=== PATIENT | female | born 1945 | race Caucasian/White ===

== ENCOUNTER 2021-10-12 14:59 | Inpatient (IN) ==
[2021-10-12] MEDS ORDERED: SALINE 0.9% 3 ML NEB TX ONE (18:08)
[2021-10-12] MEDS ORDERED: SALINE 3% 15 ML NEB TX NEB ONE (18:19)
[2021-10-12 18:45] VITALS: BMI 25.6
[2021-10-12] MEDS ORDERED: XOPENEX 1.25 MG/3 ML NEBULE NEB ONE (20:00)
[2021-10-12] MEDS: PULMICORT NEB TX 0.5 MG NEB SCH (20:59)
[2021-10-12] MEDS ORDERED: APRESOLINE INJ 20 MG VIAL IVP ONE (22:08)
[2021-10-12] MEDS ORDERED: NORMODYNE INJ 20 MG VIAL IV PRN (22:08)
[2021-10-12] MEDS ORDERED: CATAPRES TAB 0.1 MG PO ONE (22:08)
[2021-10-13] MEDS: XOPENEX 1.25 MG/3 ML NEBULE NEB SCH ×4 (00:42→17:00)
[2021-10-13 06:00] LABS: BASOPHILS % (AUTO) 0.6 % (0.2-1.0); EOSINOPHILS % (AUTO) 0.9 % (0.9-2.9); HEMATOCRIT 24.8 % (36.0-47.0); HEMOGLOBIN 8.5 g/dL (12.0-16.0); LYMPHOCYTES # (AUTO) 0.9 X10^3/uL (1.3-2.9); LYMPHOCYTES % (AUTO) 28.7 % (21.0-51.0); MEAN CORPUSCULAR HEMOGLOBIN 32.4 pg (27.0-34.0); MEAN CORPUSCULAR HGB CONC 34.4 g/dL (33.0-35.0); MEAN CORPUSCULAR VOLUME 94.1 fL (80.0-100.0); MEAN PLATELET VOLUME 8.9 fL (7.4-11.0); MONOCYTES # (AUTO) 0.3 x10^3/uL (0.3-0.8); MONOCYTES % (AUTO) 8.9 % (0.0-13.0); NEUTROPHILS % (AUTO) 60.9 % (42.0-75.0); RED BLOOD COUNT 2.63 X10^6/uL (3.5-5.4); RED CELL DISTRIBUTION WIDTH 15.3 % (11.6-16.5); WHITE BLOOD COUNT 3.3 X10^3/uL (3.6-10.0)
--- NOTE | 2021-10-13 06:08 | RAD ---
HISTORYCOVID, SOB Relevant Clinical InformationSTUDYCHEST, 1 VIEWCOMPARISONNoneFINDINGSThe trachea is midline. The cardiac silhouette is unremarkable. The lungs are clear without focal infiltrate or effusion. The bony thorax is unremarkable.IMPRESSIONNo acute cardiopulmonary findings .Electronically signed by: Mckay Meyer (Oct 13, 2021 06:07:36)
[2021-10-13 06:09] LABS: ALANINE AMINOTRANSFERASE 22 Units/L (12-78); ALBUMIN 2.9 g/dL (3.4-5.0); ALKALINE PHOSPHATASE 62 Units/L (46-116); ASPARTATE AMINO TRANSFERASE 19 Units/L (15-37); BLOOD UREA NITROGEN 24 mg/dL (7-18); CALCIUM 7.8 mg/dL (8.5-10.1); CARBON DIOXIDE 32.3 mmol/L (21-32); CHLORIDE 106 mmol/L (98-107); COR CA(FOR HYPOALB) 8.7 mg/dL (8.5-10.1); SODIUM 144 mmol/L (136-145); TOTAL PROTEIN 5.8 g/dL (6.4-8.2); eGFR NON BLACK RACES 42 (>60)
[2021-10-13] MEDS ORDERED: POTASSIUM CHL 60 MEQ/NS 0.45% 500 ML IV PRN (07:47)
[2021-10-13] MEDS ORDERED: POTASSIUM CHL 40 MEQ/NS 0.45% 500 ML IV PRN (07:47)
[2021-10-13] MEDS ORDERED: MICRO K EXTEN CAP 10 MEQ PO PRN (07:47)
[2021-10-13] MEDS ORDERED: KLOR-CON PO PRN (07:47)
[2021-10-13] MEDS ORDERED: POTASSIUM CHLORIDE LIQ 20 MEQ UDC PO PRN (07:47)
[2021-10-13] MEDS ORDERED: K-RIDER 10 MEQ/NS 100 ML 10 MEQ/100 ML BAG IV PRN (07:47)
[2021-10-13] MEDS ORDERED: NS 100 ML IV 100 ML IV PRN (08:22)
[2021-10-13] MEDS: K-DUR TAB 20 MEQ PO PRN (08:24)
[2021-10-13] MEDS: MAGNESIUM SULFATE 1 GRAM/100 mL PREMIX 1 G/100 ML BAG IV PRN ×4 (08:27→12:47)
[2021-10-13] MEDS: PULMICORT NEB TX 0.5 MG NEB SCH ×2 (08:37→20:50)
[2021-10-13] MEDS: LEVAQUIN PREMIX IV 500 MG 500 MG/100 ML BAG IV SCH (09:36)
[2021-10-14] MEDS: XOPENEX 1.25 MG/3 ML NEBULE NEB SCH ×4 (00:30→18:11)
--- NOTE | 2021-10-14 06:10 | RAD ---
HISTORYPNEUMONIA; SOB Relevant Clinical InformationSTUDYCHEST, 1 [id number]/2022FINDINGSThe trachea is midline. The cardiac silhouette is unremarkable. The lungs are clear without focal infiltrate or effusion. The bony thorax is unremarkable.IMPRESSIONNo acute cardiopulmonary findings .Electronically signed by: Mckay Meyer (Oct 14, 2021 06:09:26)
[2021-10-14 06:33] LABS: BASOPHILS % (AUTO) 0.6 % (0.2-1.0); EOSINOPHILS % (AUTO) 0.5 % (0.9-2.9); HEMATOCRIT 25.6 % (36.0-47.0); HEMOGLOBIN 8.8 g/dL (12.0-16.0); LYMPHOCYTES # (AUTO) 0.7 X10^3/uL (1.3-2.9); LYMPHOCYTES % (AUTO) 14.8 % (21.0-51.0); MEAN CORPUSCULAR HEMOGLOBIN 32.7 pg (27.0-34.0); MEAN CORPUSCULAR HGB CONC 34.2 g/dL (33.0-35.0); MEAN CORPUSCULAR VOLUME 95.5 fL (80.0-100.0); MONOCYTES # (AUTO) 0.4 x10^3/uL (0.3-0.8); MONOCYTES % (AUTO) 7.6 % (0.0-13.0); NEUTROPHILS # (AUTO) 3.7 x10^3/uL (2.2-4.8); NEUTROPHILS % (AUTO) 76.5 % (42.0-75.0); RED BLOOD COUNT 2.68 X10^6/uL (3.5-5.4); RED CELL DISTRIBUTION WIDTH 15.7 % (11.6-16.5); WHITE BLOOD COUNT 4.9 X10^3/uL (3.6-10.0)
[2021-10-14 06:36] LABS: ALANINE AMINOTRANSFERASE 22 Units/L (12-78); ALKALINE PHOSPHATASE 73 Units/L (46-116); ASPARTATE AMINO TRANSFERASE 21 Units/L (15-37); BLOOD UREA NITROGEN 27 mg/dL (7-18); CARBON DIOXIDE 30.4 mmol/L (21-32); CHLORIDE 104 mmol/L (98-107); COR CA(FOR HYPOALB) 8.8 mg/dL (8.5-10.1); CREATININE 1.45 mg/dL (0.55-1.02); MAGNESIUM 2.4 mg/dL (1.7-2.9); SODIUM 142 mmol/L (136-145); TOTAL PROTEIN 6.1 g/dL (6.4-8.2); eGFR NON BLACK RACES 37 (>60)
[2021-10-14] MEDS: PULMICORT NEB TX 0.5 MG NEB SCH ×2 (08:35→21:01)
[2021-10-14] MEDS ORDERED: ZOLOFT ONE (09:44)
[2021-10-14] MEDS: LOPRESSOR TAB 50 MG PO SCH (09:47)
[2021-10-14] MEDS: K-DUR TAB 20 MEQ PO PRN (09:47)
[2021-10-14] MEDS: LEVAQUIN PREMIX IV 500 MG 500 MG/100 ML BAG IV SCH (09:47)
[2021-10-14] MEDS: ZOLOFT PO SCH (09:48)
[2021-10-14] MEDS: MICRO K EXTEN CAP 10 MEQ PO SCH (09:48)
[2021-10-14] MEDS: TRICOR TAB 160 MG PO SCH (09:48)
[2021-10-14] MEDS: NORVASC TAB 5 MG PO SCH (09:48)
[2021-10-14] MEDS: DIOVAN TAB 160 MG PO SCH (09:49)
[2021-10-14] MEDS: HYDROCHLOROTHIAZIDE 12.5 MG CAP PO SCH (09:49)
[2021-10-14] MEDS ORDERED: LEVAQUIN PREMIX IV 250 MG 250 MG/50 ML BAG IV SCH (10:00)
--- NOTE | 2021-10-14 10:24 | DR.UPDATE ---
H&P Update History and Physical Update: History and Physical reviewed and patient examined. Changes noted: Yes with the following: PATIENT PRESENTED TO THE OFFICE WITH COMPLAINTS OF PERSISTENT, NON-PRODUCTIVE COUGH AND SHORTNESS OF BREATH. SYMPTOMS HAVE BEEN PRESENT FOR THE PAST TWO AND A HALF WEEKS. SHE INITIALLY TESTED POSITIVE FOR COVID-19 ON 09/28/21. SHE WAS TREATED WITH A Z-PACK AND A MEDROL DOSE PACK. COUGH AND SHORTNESS OF BREATH HAVE PERSISTED DESPITE COMPLETING MEDICATIONS. DECISION WAS MADE TO ADMIT PATIENT TO THE HOSPTIAL FOR FURTHER EVALUATION AND TREATMENT OF BRONCHOPNEUMONIA. ON ARRIVAL TO THE HOSPITAL, VITALS WERE: 99.3-74-20-100%-183/78. LABS WERE OBTAINED. WBC 3.3, RBC 2.63, HGB 8.5, HCT 24.8, D-DIMER 0.66, SODIUM 144, POTASSIUM 3.6, CARBON DIOXIDE 32.3, BUN 24, CREATININE 1.30, GLUCOSE 96, CALCIUM 7.8, MAGNESIUM 1.4, AST 19, ALT 22, ALK PHOS 62, BNP 186, ALBUMIN 2.9. COVID-19 POSITIVE. EKG REVEALED: NSR WITH HR 68. CHEST XRAY REVEALED: The trachea is midline. The cardiac silhouette is unremarkable. The lungs are clear without focal infiltrate or effusion. The bony thorax is unremarkable. SHE WAS STARTED ON NORMAL SALINE AT KVO, LEVAQUIN 250MG IV DAILY, XOPENEX NEBS Q6H, PULMICORT NEBS BID, ROBITUSSIN DM 10ML QID, AND THE POTASSIUM AND MAGNESIUM PROTOCOLS. WE WILL REFIEW HER HOME MEDICATIONS TODAY AND RESUME APPROPRIATE. OTHERWISE, WE PLAN TO FOLLOW-UP WITH AM LABS AND CHEST XRAY AND CONTINUE TO MONITOR. TIME SPENT ON CLINICAL ASSESSMENT, REVIWING LABS AND IMAGING, DECISION MAKING, AND DOCUMENTATION GREATER THAN 75 MINUTES. H&P Reviewed: Yes Patient was examined?: Yes
[2021-10-14] MEDS: ROBITUSSIN DM PO SCH ×4 (11:07→20:06)
--- NOTE | 2021-10-14 11:49 | PCM.PROG ---
Progress Note - Progress Note for Day of Date of Exam: 10/14/21 - Subjective Subjective: IS CURRENTLY OBSERVATION STATUS FOR TREATMENT OF BRONCHOPNEUMONIA, COVID-19. SHE INITIALLY TESTED POSITIVE FOR COVID-19 APPROXIMATELY TWO WEEKS AGO. TODAY, SHE IS ALERT AND ORIENTED, SITTING UP IN BED ON MORNING ROUNDS. SHE COMPLAINS OF A PERSISTENT, NON-PRODUCTIVE COUGH AND SHORTNESS OF BREATH AT TIMES. ON EXAMINATION, HEART IS REGULAR IN RATE AND RHYTHM. BILATERAL LUNGS NOTED WITH RHONCHI THROUGHOUT. ABDOMEN IS ROUND, SOFT, AND NON-TENDER WITH NORMAL BOWEL SOUNDS NOTED IN ALL QUADRANTS. NO UPPER OR LOWER EXTREMITY EDEMA NOTED. HER VITALS THIS MORNING ARE: 98.2-93-20-100%-149/6 8. LABS WERE OBTAINED. WBC 4.9, RBC 2.68, HGB 8.8, HCT 25.6, PLT COUNT 167, D- DIMER 0.64, SODIUM 142, POTASSIUM 3.4, BUN 27, CREATININE 1.45, GLUCOSE 107, CALCIUM 8.0, MAGNESIUM 2.4, TOTAL PROTIEN 6.1, ALBUMIN 3.0. A CHEST XRAY WAS REPEATED. IT REVEALED: The trachea is midline. The cardiac silhouette is unremarkable. The lungs are clear without focal infiltrate or effusion. The bony thorax is unremarkable. SHE IS CURRENTLY RECEIVING NORMAL SALINE AT KVO, LEVAQUIN 250MG IV DAILY, XOPENEX NEBS Q6H, PULMICORT NEBS BID, ROBITUSSIN DM 10ML QID, AND THE POTASSIUM AND MAGNESIUM PROTOCOLS. HER HOME MEDICATIONS OF NORVASC, ZYRTEC, TRICOR, NEURONTIN, HCTZ, LOPRESSOR, ZOLOFT, AND DIOVAN WERE RESUMED. WE WILL CONTINUE WITH CURRENT PLAN OF CARE TODAY. OTHERWISE, WE PLAN TO FOLLOW-UP WITH AM LABS AND CONTINUE TO MONITOR. TIME SPENT ON CLINICAL ASSESSMENT, REVIWING LABS AND IMAGING, DECISION MAKING, AND DOCUMENTATION GREATER THAN 45 MINUTES. - Past Medical Family Social History Past Med/Fam/Surg Hx: No changes since H&P Allergies: Allergies Penicillins Allergy (Verified 05/28/20 12:08) - Review of Systems ROS: No change since H&P - Vital Signs and I&O's Vital Signs: Temperature 98.2 F Pulse Rate [Apical] 93 Pulse Rate 85 Respiratory Rate 20 Blood Pressure [Left Arm] 149/68 Blood Pressure 188/77 O2 Sat by Pulse Oximetry 98 Intake and Output: Intake & Output 10/11/21 10/12/21 10/13/21 10/14/21 11:59 11:59 11:59 11:59 Intake Total 1170 / 1170 Balance 1170 / 1170 - Physical Exam Oriented: Normal Eyes: Normal Ear: Normal Nose: Normal Throat: Normal Respiratory: Generalized, Diminished, Rhonchi Cardiovascular: Normal : Normal Auscultation: Bowel Sounds: Normal Palpation: Normal Tenderness: Normal Skin: Normal Musculoskeletal: Normal Psychiatric: Normal Mood Description: Calm Affect: Normal Speech Pattern: Clear, Appropriate - Laboratory and Diagnostics Result Diagrams: 10/14/21 05:34 10/14/21 05:34 Labs: Laboratory WBC 4.9 X10^3/uL (3.6-10.0) 10/14/21 05:34 RBC 2.68 X10^6/uL (3.5-5.4) L 10/14/21 05:34 Hgb 8.8 g/dL (12.0-16.0) L 10/14/21 05:34 Hct 25.6 % (36.0-47.0) L 10/14/21 05:34 MCV 95.5 fL (80.0-100.0) 10/14/21 05:34 MCH 32.7 pg (27.0-34.0) 10/14/21 05:34 MCHC 34.2 g/dL (33.0-35.0) 10/14/21 05:34 RDW 15.7 % (11.6-16.5) 10/14/21 05:34 Plt Count 167 X10^3/uL (150.0-450.0) 10/14/21 05:34 MPV 9.0 fL (7.4-11.0) 10/14/21 05:34 Neut % (Auto) 76.5 % (42.0-75.0) H 10/14/21 05:34 Lymph % (Auto) 14.8 % (21.0-51.0) L 10/14/21 05:34 [place] % (Auto) 7.6 % (0.0-13.0) 10/14/21 05:34 Eos % (Auto) 0.5 % (0.9-2.9) L 10/14/21 05:34 Baso % (Auto) 0.6 % (0.2-1.0) 10/14/21 05:34 Neut # (Auto) 3.7 x10^3/uL (2.2-4.8) 10/14/21 05:34 Lymph # (Auto) 0.7 X10^3/uL (1.3-2.9) L 10/14/21 05:34 [place] # (Auto) 0.4 x10^3/uL (0.3-0.8) 10/14/21 05:34 Eos # (Auto) 0.0 x10^3/uL (0.0-0.2) 10/14/21 05:34 Baso # (Auto) 0.0 X10^3/uL (0.0-0.1) 10/14/21 05:34 Absolute Nucleated RBC 0.0 /100WBC 10/14/21 05:34 D-Dimer 0.64 ug/ml (0.0-0.57) H 10/14/21 05:34 Sodium 142 mmol/L (136-145) 10/14/21 05:34 Corrected Sodium TNP 10/14/21 05:34 Potassium 3.4 mmol/L (3.5-5.1) L 10/14/21 05:34 Chloride 104 mmol/L (98-107) 10/14/21 05:34 Carbon Dioxide 30.4 mmol/L (21-32) 10/14/21 05:34 BUN 27 mg/dL (7-18) H 10/14/21 05:34 Creatinine 1.45 mg/dL (0.55-1.02) H 10/14/21 05:34 Est GFR (MDRD) Af Amer 45 (>60) L 10/14/21 05:34 Est GFR (MDRD) Non-Af 37 (>60) L 10/14/21 05:34 Glucose 107 mg/dL (65-99) H 10/14/21 05:34 Calcium 8.0 mg/dL (8.5-10.1) L 10/14/21 05:34 Corrected Calcium 8.8 mg/dL (8.5-10.1) 10/14/21 05:34 Magnesium 2.4 mg/dL (1.7-2.9) 10/14/21 05:34 Total Bilirubin 0.70 mg/dL (0.2-1.0) 10/14/21 05:34 AST 21 Units/L (15-37) 10/14/21 05:34 ALT 22 Units/L (12-78) 10/14/21 05:34 Alkaline Phosphatase 73 Units/L (46-116) 10/14/21 05:34 C-Reactive Protein 1.90 mg/L (0-3.0) 10/14/21 05:34 B-Natriuretic Peptide 186 pg/mL (0-79) H 10/13/21 05:18 Total Protein 6.1 g/dL (6.4-8.2) L 10/14/21 05:34 Albumin 3.0 g/dL (3.4-5.0) L 10/14/21 05:34 Globulin 3.1 g/dL (2.5-4.5) 10/14/21 05:34 Albumin/Globulin Ratio 1.0 Ratio (1.1-2.1) L 10/14/21 05:34 SARS-CoV-2 (PCR) Positive (NEGATIVE) A 10/12/21 18:15 - Plan (1) Bronchopneumonia Status: Acute Plan: NORMAL SALINE AT KVO, LEVAQUIN 250MG IV DAILY, XOPENEX NEBS Q6H, PULMICORT NEBS BID, ROBITUSSIN DM 10ML QID, AND THE POTASSIUM AND MAGNESIUM PROTOCOLS. RESUME HOME MEDS (2) COVID-19 Status: Acute (3) HTN (hypertension) Status: Chronic Qualifiers: Hypertension type: primary hypertension Qualified Code(s): I10 - Essential (primary) hypertension
[2021-10-14] MEDS: LEVAQUIN TAB 250 MG PO SCH (16:04)
[2021-10-14] MEDS: NEURONTIN CAP 100 MG PO SCH (20:07)
[2021-10-14] MEDS: ZyrTEC TAB 10 MG PO SCH (20:07)
[2021-10-15] MEDS: XOPENEX 1.25 MG/3 ML NEBULE NEB SCH ×5 (00:54→18:52)
--- NOTE | 2021-10-15 06:17 | RAD ---
HISTORYF/U PNEUMONIA Relevant Clinical InformationSTUDYCHEST, 1 [id number]/31/2022FINDINGSThe trachea is midline. The cardiac silhouette is unremarkable. The lungs are clear without focal infiltrate or effusion. The bony thorax is unremarkable.IMPRESSIONNo acute cardiopulmonary findings .Electronically signed by: Mckay Meyer (Oct 15, 2021 06:15:31)
[2021-10-15 06:29] LABS: ALANINE AMINOTRANSFERASE 23 Units/L (12-78); ALBUMIN 2.7 g/dL (3.4-5.0); ALKALINE PHOSPHATASE 58 Units/L (46-116); ASPARTATE AMINO TRANSFERASE 26 Units/L (15-37); BLOOD UREA NITROGEN 20 mg/dL (7-18); CALCIUM 7.8 mg/dL (8.5-10.1); CHLORIDE 109 mmol/L (98-107); COR CA(FOR HYPOALB) 8.8 mg/dL (8.5-10.1); CREATININE 1.14 mg/dL (0.55-1.02); SODIUM 144 mmol/L (136-145); TOTAL PROTEIN 5.5 g/dL (6.4-8.2); eGFR NON BLACK RACES 49 (>60)
[2021-10-15 06:32] LABS: BASOPHILS % (AUTO) 0.7 % (0.2-1.0); HEMATOCRIT 23.8 % (36.0-47.0); LYMPHOCYTES # (AUTO) 0.8 X10^3/uL (1.3-2.9); LYMPHOCYTES % (AUTO) 21.6 % (21.0-51.0); MEAN CORPUSCULAR HGB CONC 33.7 g/dL (33.0-35.0); MEAN CORPUSCULAR VOLUME 95.1 fL (80.0-100.0); MONOCYTES # (AUTO) 0.3 x10^3/uL (0.3-0.8); MONOCYTES % (AUTO) 8.3 % (0.0-13.0); NEUTROPHILS # (AUTO) 2.4 x10^3/uL (2.2-4.8); NEUTROPHILS % (AUTO) 68.4 % (42.0-75.0); RED BLOOD COUNT 2.51 X10^6/uL (3.5-5.4); RED CELL DISTRIBUTION WIDTH 15.5 % (11.6-16.5); WHITE BLOOD COUNT 3.6 X10^3/uL (3.6-10.0)
[2021-10-15] MEDS ORDERED: ZOLOFT ONE (06:57)
[2021-10-15] MEDS: LOPRESSOR TAB 50 MG PO SCH (08:33)
[2021-10-15] MEDS: HYDROCHLOROTHIAZIDE 12.5 MG CAP PO SCH (08:33)
[2021-10-15] MEDS: ROBITUSSIN DM PO SCH (08:33)
[2021-10-15] MEDS: MICRO K EXTEN CAP 10 MEQ PO SCH (08:33)
[2021-10-15] MEDS: ZOLOFT PO SCH (08:33)
[2021-10-15] MEDS: LEVAQUIN TAB 250 MG PO SCH (08:33)
[2021-10-15] MEDS: NORVASC TAB 5 MG PO SCH (08:34)
[2021-10-15] MEDS: TRICOR TAB 160 MG PO SCH (08:34)
[2021-10-15] MEDS: DIOVAN TAB 160 MG PO SCH (08:34)
[2021-10-15] MEDS: PULMICORT NEB TX 0.5 MG NEB SCH ×2 (08:41→20:10)
[2021-10-15] MEDS ORDERED: LEVAQUIN TAB 250 MG PO SCH (09:00)
--- NOTE | 2021-10-15 11:23 | PCM.PROG ---
Progress Note - Progress Note for Day of Date of Exam: 10/15/21 - Subjective Subjective: IS CURRENTLY OBSERVATION STATUS FOR TREATMENT OF BRONCHOPNEUMONIA, COVID-19. SHE INITIALLY TESTED POSITIVE FOR COVID-19 APPROXIMATELY TWO WEEKS AGO. TODAY, SHE IS ALERT AND ORIENTED, SITTING UP IN BED ON MORNING ROUNDS. SHE COMPLAINS OF A PERSISTENT, NON-PRODUCTIVE COUGH AND SHORTNESS OF BREATH AT TIMES. ON EXAMINATION, HEART IS REGULAR IN RATE AND RHYTHM. BILATERAL LUNGS NOTED WITH RHONCHI THROUGHOUT. ABDOMEN IS ROUND, SOFT, AND NON-TENDER WITH NORMAL BOWEL SOUNDS NOTED IN ALL QUADRANTS. NO UPPER OR LOWER EXTREMITY EDEMA NOTED. HER VITALS THIS MORNING ARE: 98.2-82-20-96%-152/67. LABS WERE OBTAINED. WBC 3.6, RBC 2.51, HGB 8.0, HCT 23.8, PLT COUNT 144, SODIUM 144, POTASSIUM 4.1, CHLORIDE 109, BUN 20, CREATININE 1.14, GLUCOSE 92, CALCIUM 7.8, AST 26, ALT 23, ALK PHOS 58, CRP 2.80, TOTAL PROTEIN 5.5, ALBUMIN 2.7. A CHEST XRAY WAS REPEATED AND IS UNREMARGKABLE. HER RESPIRATORY PANEL WAS POSITIVE FOR PSEUDOMONAS AERUGINOSA. SHE IS CURRENTLY RECEIVING NORMAL SALINE AT KVO, LEV AQUIN 250MG PO DAILY, XOPENEX NEBS Q6H, PULMICORT NEBS BID, ROBITUSSIN DM 10ML QID, AND THE POTASSIUM AND MAGNESIUM PROTOCOLS. HER HOME MEDICATIONS OF NORVASC, ZYRTEC, TRICOR, NEURONTIN, HCTZ, LOPRESSOR, ZOLOFT, AND DIOVAN WERE RESUMED. WE WILL CHANGE THE ROBITUSSIN TO ROBITUSSIN CF 10ML QID. OTHERWISE, WE PLAN TO FOLLOW-UP WITH AM LABS AND CONTINUE TO MONITOR. TIME SPENT ON CLINICAL ASSESSMENT, REVIWING LABS AND IMAGING, DECISION MAKING, AND DOCUMENTATION GREATER THAN 45 MINUTES. - Past Medical Family Social History Past Med/Fam/Surg Hx: No changes since H&P Allergies: Allergies Penicillins Allergy (Verified 05/28/20 12:08) - Review of Systems ROS: No change since H&P - Vital Signs and I&O's Vital Signs: Temperature 98.2 F Pulse Rate [Apical] 82 Pulse Rate 88 Respiratory Rate 20 Blood Pressure [Left Arm] 152/67 Blood Pressure 188/77 O2 Sat by Pulse Oximetry 99 Intake and Output: Intake & Output 10/12/21 10/13/21 10/14/21 10/15/21 11:59 11:59 11:59 11:59 Intake Total 1170 / 1170 950 / 950 Balance 1170 / 1170 950 / 950 - Physical Exam Oriented: Normal Eyes: Normal Ear: Normal Nose: Normal Throat: Normal Respiratory: Generalized, Diminished, Rhonchi Cardiovascular: Normal : Normal Auscultation: Bowel Sounds: Normal Palpation: Normal Tenderness: Normal Skin: Normal Musculoskeletal: Normal Psychiatric: Normal Mood Description: Calm Affect: Normal Speech Pattern: Clear, Appropriate - Laboratory and Diagnostics Result Diagrams: 10/15/21 05:11 10/15/21 05:11 Labs: Laboratory WBC 3.6 X10^3/uL (3.6-10.0) 10/15/21 05:11 RBC 2.51 X10^6/uL (3.5-5.4) L 10/15/21 05:11 Hgb 8.0 g/dL (12.0-16.0) L 10/15/21 05:11 Hct 23.8 % (36.0-47.0) L 10/15/21 05:11 MCV 95.1 fL (80.0-100.0) 10/15/21 05:11 MCH 32.0 pg (27.0-34.0) 10/15/21 05:11 MCHC 33.7 g/dL (33.0-35.0) 10/15/21 05:11 RDW 15.5 % (11.6-16.5) 10/15/21 05:11 Plt Count 144 X10^3/uL (150.0-450.0) L 10/15/21 05:11 MPV 9.0 fL (7.4-11.0) 10/15/21 05:11 Neut % (Auto) 68.4 % (42.0-75.0) 10/15/21 05:11 Lymph % (Auto) 21.6 % (21.0-51.0) 10/15/21 05:11 [place] % (Auto) 8.3 % (0.0-13.0) 10/15/21 05:11 Eos % (Auto) 1.0 % (0.9-2.9) 10/15/21 05:11 Baso % (Auto) 0.7 % (0.2-1.0) 10/15/21 05:11 Neut # (Auto) 2.4 x10^3/uL (2.2-4.8) 10/15/21 05:11 Lymph # (Auto) 0.8 X10^3/uL (1.3-2.9) L 10/15/21 05:11 [place] # (Auto) 0.3 x10^3/uL (0.3-0.8) 10/15/21 05:11 Eos # (Auto) 0.0 x10^3/uL (0.0-0.2) 10/15/21 05:11 Baso # (Auto) 0.0 X10^3/uL (0.0-0.1) 10/15/21 05:11 Absolute Nucleated RBC 0.1 /100WBC 10/15/21 05:11 D-Dimer 0.64 ug/ml (0.0-0.57) H 10/14/21 05:34 Sodium 144 mmol/L (136-145) 10/15/21 05:11 Corrected Sodium TNP 10/15/21 05:11 Potassium 4.1 mmol/L (3.5-5.1) 10/15/21 05:11 Chloride 109 mmol/L (98-107) H 10/15/21 05:11 Carbon Dioxide 29.0 mmol/L (21-32) 10/15/21 05:11 BUN 20 mg/dL (7-18) H 10/15/21 05:11 Creatinine 1.14 mg/dL (0.55-1.02) H 10/15/21 05:11 Est GFR (MDRD) Af Amer 60 (>60) 10/15/21 05:11 Est GFR (MDRD) Non-Af 49 (>60) L 10/15/21 05:11 Glucose 92 mg/dL (65-99) 10/15/21 05:11 Calcium 7.8 mg/dL (8.5-10.1) L 10/15/21 05:11 Corrected Calcium 8.8 mg/dL (8.5-10.1) 10/15/21 05:11 Magnesium 2.4 mg/dL (1.7-2.9) 10/14/21 05:34 Total Bilirubin 0.70 mg/dL (0.2-1.0) 10/15/21 05:11 AST 26 Units/L (15-37) 10/15/21 05:11 ALT 23 Units/L (12-78) 10/15/21 05:11 Alkaline Phosphatase 58 Units/L (46-116) 10/15/21 05:11 C-Reactive Protein 2.80 mg/L (0-3.0) 10/15/21 05:11 B-Natriuretic Peptide 186 pg/mL (0-79) H 10/13/21 05:18 Total Protein 5.5 g/dL (6.4-8.2) L 10/15/21 05:11 Albumin 2.7 g/dL (3.4-5.0) L 10/15/21 05:11 Globulin 2.8 g/dL (2.5-4.5) 10/15/21 05:11 Albumin/Globulin Ratio 1.0 Ratio (1.1-2.1) L 10/15/21 05:11 SARS-CoV-2 (PCR) Positive (NEGATIVE) A 10/12/21 18:15 Resp Viral Panel (PCR) See scanned report 10/12/21 18:38 - Plan (1) Bronchopneumonia Status: Acute Plan: NORMAL SALINE AT KVO, LEVAQUIN 250MG IV DAILY, XOPENEX NEBS Q6H, PULMICORT NEBS BID, ROBITUSSIN CF 10ML QID, AND THE POTASSIUM AND MAGNESIUM PROTOCOLS. RESUME HOME MEDS (2) COVID-19 Status: Acute (3) HTN (hypertension) Status: Chronic Qualifiers: Hypertension type: primary hypertension Qualified Code(s): I10 - Essential (primary) hypertension
[2021-10-15] MEDS: ROBITUSSIN CF SYRUP PO SCH ×3 (14:32→20:22)
[2021-10-15] MEDS: ZyrTEC TAB 10 MG PO SCH (20:21)
[2021-10-15] MEDS: NEURONTIN CAP 100 MG PO SCH (20:21)
[2021-10-16] MEDS: TESSALON PERLES PO PRN ×3 (00:24→16:15)
--- NOTE | 2021-10-16 05:42 | RAD ---
HISTORYOB DM, HTN, HYSTERECTOMY, ORTHO, GB, APPENDIX, HERNIASTUDYCHEST, 1 [id number]/2022FINDINGSThe trachea is midline. The cardiac silhouette is unremarkable. The lungs are clear without focal infiltrate or effusion. The bony thorax is unremarkable.IMPRESSIONNo acute cardiopulmonary findings .Electronically signed by: Mckay Meyer (Oct 16, 2021 05:41:01)
[2021-10-16] MEDS: XOPENEX 1.25 MG/3 ML NEBULE NEB SCH ×5 (05:50→18:01)
[2021-10-16 05:54] LABS: BASOPHILS % (AUTO) 0.4 % (0.2-1.0); EOSINOPHILS % (AUTO) 0.6 % (0.9-2.9); HEMATOCRIT 24.4 % (36.0-47.0); HEMOGLOBIN 8.3 g/dL (12.0-16.0); LYMPHOCYTES # (AUTO) 0.7 X10^3/uL (1.3-2.9); LYMPHOCYTES % (AUTO) 18.9 % (21.0-51.0); MEAN CORPUSCULAR HEMOGLOBIN 32.3 pg (27.0-34.0); MEAN CORPUSCULAR HGB CONC 34.1 g/dL (33.0-35.0); MEAN CORPUSCULAR VOLUME 94.7 fL (80.0-100.0); MEAN PLATELET VOLUME 8.8 fL (7.4-11.0); MONOCYTES # (AUTO) 0.3 x10^3/uL (0.3-0.8); MONOCYTES % (AUTO) 8.5 % (0.0-13.0); NEUTROPHILS # (AUTO) 2.7 x10^3/uL (2.2-4.8); NEUTROPHILS % (AUTO) 71.6 % (42.0-75.0); RED BLOOD COUNT 2.58 X10^6/uL (3.5-5.4); RED CELL DISTRIBUTION WIDTH 15.6 % (11.6-16.5); WHITE BLOOD COUNT 3.8 X10^3/uL (3.6-10.0)
[2021-10-16 06:11] LABS: ALANINE AMINOTRANSFERASE 29 Units/L (12-78); ALBUMIN 2.9 g/dL (3.4-5.0); ALKALINE PHOSPHATASE 83 Units/L (46-116); ASPARTATE AMINO TRANSFERASE 36 Units/L (15-37); BLOOD UREA NITROGEN 21 mg/dL (7-18); CALCIUM 8.1 mg/dL (8.5-10.1); CARBON DIOXIDE 31.3 mmol/L (21-32); CHLORIDE 108 mmol/L (98-107); CREATININE 1.17 mg/dL (0.55-1.02); SODIUM 143 mmol/L (136-145); TOTAL PROTEIN 5.8 g/dL (6.4-8.2); eGFR NON BLACK RACES 48 (>60)
[2021-10-16] MEDS ORDERED: ZOLOFT ONE (08:22)
[2021-10-16] MEDS: PULMICORT NEB TX 0.5 MG NEB SCH ×2 (08:25→20:50)
[2021-10-16] MEDS: TRICOR TAB 160 MG PO SCH (08:35)
[2021-10-16] MEDS: ZOLOFT PO SCH (08:36)
[2021-10-16] MEDS: HYDROCHLOROTHIAZIDE 12.5 MG CAP PO SCH (08:36)
[2021-10-16] MEDS: LOPRESSOR TAB 50 MG PO SCH (08:36)
[2021-10-16] MEDS: NORVASC TAB 5 MG PO SCH (08:36)
[2021-10-16] MEDS: MICRO K EXTEN CAP 10 MEQ PO SCH (08:37)
[2021-10-16] MEDS: DIOVAN TAB 160 MG PO SCH (08:37)
[2021-10-16] MEDS: ROBITUSSIN CF SYRUP PO SCH ×4 (08:37→21:17)
[2021-10-16] MEDS: LEVAQUIN TAB 250 MG PO SCH (08:39)
[2021-10-16] MEDS: NEURONTIN CAP 100 MG PO SCH (21:18)
[2021-10-16] MEDS: ZyrTEC TAB 10 MG PO SCH (21:19)
--- NOTE | 2021-10-16 23:44 | PCM.PROG ---
Progress Note - Progress Note for Day of Date of Exam: 10/16/21 - Subjective Subjective: IS CURRENTLY OBSERVATION STATUS FOR TREATMENT OF BRONCHOPNEUMONIA, COVID-19. SHE INITIALLY TESTED POSITIVE FOR COVID-19 APPROXIMATELY TWO WEEKS AGO. TODAY, SHE IS ALERT AND ORIENTED, SITTING UP IN BED ON MORNING ROUNDS. SHE CONTINUES TO COMPLAIN OF A PERSISTENT, NON-PRODUCTIVE COUGH AND SHORTNESS OF BREATH AT TIMES. ON EXAMINATION, HEART IS REGULAR IN RATE AND RHYTHM. BILATERAL LUNGS NOTED WITH RHONCHI THROUGHOUT. ABDOMEN IS ROUND, SOFT, AND NON-TENDER WITH NORMAL BOWEL SOUNDS NOTED IN ALL QUADRANTS. NO UPPER OR LOWER EXTREMITY EDEMA NOTED. HER VITALS THIS MORNING ARE: 98.2-82-2 0-96%-152/67. LABS WERE OBTAINED. WBC 3.8, RBC 2.58, HGB 8.3, HCT 24.4, SODIUM 143, POTASSIUM 4.2, CHLORIDE 108, BUN 21, CREATININE 1.17, GLUCOSE 94, CALCIUM 8.1, TOTAL PROTEIN 5.8, ALBUMIN 2.9. A CHEST XRAY WAS REPEATED AND IS UNREMARGKABLE. HER RESPIRATORY PANEL WAS POSITIVE FOR PSEUDOMONAS AERUGINOSA. SHE IS CURRENTLY RECEIVING NORMAL SALINE AT KVO, LEVAQUIN 250MG PO DAILY, XOPENEX NEBS Q6H, PULMICORT NEBS BID, ROBITUSSIN CF 10ML QID, AND THE POTASSIUM AND MAGNESIUM PROTOCOLS. HER HOME MEDICATIONS OF NORVASC, ZYRTEC, TRICOR, NEURONTIN, HCTZ, LOPRESSOR, ZOLOFT, AND DIOVAN WERE RESUMED. OTHERWISE, WE PLAN TO FOLLOW-UP WITH AM LABS AND CONTINUE TO MONITOR. TIME SPENT ON CLINICAL ASSESSMENT, REVIWING LABS AND IMAGING, DECISION MAKING, AND DOCUMENTATION GREATER THAN 45 MINUTES. - Past Medical Family Social History Past Med/Fam/Surg Hx: No changes since H&P Allergies: Allergies Penicillins Allergy (Verified 05/28/20 12:08) - Review of Systems ROS: No change since H&P - Vital Signs and I&O's Vital Signs: Temperature 99.1 F Pulse Rate [Apical] 73 Pulse Rate 82 Respiratory Rate 20 Blood Pressure [Left Arm] 147/68 Blood Pressure 188/77 O2 Sat by Pulse Oximetry 97 Intake and Output: Intake & Output 10/14/21 10/15/21 10/16/21 10/17/21 11:59 11:59 11:59 11:59 Intake Total 1170 / 1170 950 / 950 740 / 740 760 / 760 Balance 1170 / 1170 950 / 950 740 / 740 760 / 760 - Physical Exam Oriented: Normal Eyes: Normal Ear: Normal Nose: Normal Throat: Normal Respiratory: Generalized, Diminished, Rhonchi Cardiovascular: Normal : Normal Auscultation: Bowel Sounds: Normal Tenderness: Normal Skin: Normal Musculoskeletal: Normal Psychiatric: Normal Mood Description: Calm Affect: Normal Speech Pattern: Clear, Appropriate - Laboratory and Diagnostics Result Diagrams: 10/16/21 05:14 10/16/21 05:14 Labs: Laboratory WBC 3.8 X10^3/uL (3.6-10.0) 10/16/21 05:14 RBC 2.58 X10^6/uL (3.5-5.4) L 10/16/21 05:14 Hgb 8.3 g/dL (12.0-16.0) L 10/16/21 05:14 Hct 24.4 % (36.0-47.0) L 10/16/21 05:14 MCV 94.7 fL (80.0-100.0) 10/16/21 05:14 MCH 32.3 pg (27.0-34.0) 10/16/21 05:14 MCHC 34.1 g/dL (33.0-35.0) 10/16/21 05:14 RDW 15.6 % (11.6-16.5) 10/16/21 05:14 Plt Count 157 X10^3/uL (150.0-450.0) 10/16/21 05:14 MPV 8.8 fL (7.4-11.0) 10/16/21 05:14 Neut % (Auto) 71.6 % (42.0-75.0) 10/16/21 05:14 Lymph % (Auto) 18.9 % (21.0-51.0) L 10/16/21 05:14 [place] % (Auto) 8.5 % (0.0-13.0) 10/16/21 05:14 Eos % (Auto) 0.6 % (0.9-2.9) L 10/16/21 05:14 Baso % (Auto) 0.4 % (0.2-1.0) 10/16/21 05:14 Neut # (Auto) 2.7 x10^3/uL (2.2-4.8) 10/16/21 05:14 Lymph # (Auto) 0.7 X10^3/uL (1.3-2.9) L 10/16/21 05:14 [place] # (Auto) 0.3 x10^3/uL (0.3-0.8) 10/16/21 05:14 Eos # (Auto) 0.0 x10^3/uL (0.0-0.2) 10/16/21 05:14 Baso # (Auto) 0.0 X10^3/uL (0.0-0.1) 10/16/21 05:14 Absolute Nucleated RBC 0.0 /100WBC 10/16/21 05:14 D-Dimer 0.64 ug/ml (0.0-0.57) H 10/14/21 05:34 Sodium 143 mmol/L (136-145) 10/16/21 05:14 Corrected Sodium TNP 10/16/21 05:14 Potassium 4.2 mmol/L (3.5-5.1) 10/16/21 05:14 Chloride 108 mmol/L (98-107) H 10/16/21 05:14 Carbon Dioxide 31.3 mmol/L (21-32) 10/16/21 05:14 BUN 21 mg/dL (7-18) H 10/16/21 05:14 Creatinine 1.17 mg/dL (0.55-1.02) H 10/16/21 05:14 Est GFR (MDRD) Af Amer 58 (>60) L 10/16/21 05:14 Est GFR (MDRD) Non-Af 48 (>60) L 10/16/21 05:14 Glucose 94 mg/dL (65-99) 10/16/21 05:14 Calcium 8.1 mg/dL (8.5-10.1) L 10/16/21 05:14 Corrected Calcium 9.0 mg/dL (8.5-10.1) 10/16/21 05:14 Magnesium 2.4 mg/dL (1.7-2.9) 10/14/21 05:34 Total Bilirubin 0.60 mg/dL (0.2-1.0) 10/16/21 05:14 AST 36 Units/L (15-37) 10/16/21 05:14 ALT 29 Units/L (12-78) 10/16/21 05:14 Alkaline Phosphatase 83 Units/L (46-116) 10/16/21 05:14 C-Reactive Protein 2.40 mg/L (0-3.0) 10/16/21 05:14 B-Natriuretic Peptide 186 pg/mL (0-79) H 10/13/21 05:18 Total Protein 5.8 g/dL (6.4-8.2) L 10/16/21 05:14 Albumin 2.9 g/dL (3.4-5.0) L 10/16/21 05:14 Globulin 2.9 g/dL (2.5-4.5) 10/16/21 05:14 Albumin/Globulin Ratio 1.0 Ratio (1.1-2.1) L 10/16/21 05:14 SARS-CoV-2 (PCR) Positive (NEGATIVE) A 10/12/21 18:15 Resp Viral Panel (PCR) See scanned report 10/12/21 18:38 - Plan (1) Bronchopneumonia Status: Acute Plan: NORMAL SALINE AT KVO, LEVAQUIN 250MG IV DAILY, XOPENEX NEBS Q6H, PULMICORT NEBS BID, ROBITUSSIN CF 10ML QID, AND THE POTASSIUM AND MAGNESIUM PROTOCOLS. RESUME HOME MEDS (2) COVID-19 Status: Acute (3) HTN (hypertension) Status: Chronic Qualifiers: Hypertension type: primary hypertension Qualified Code(s): I10 - Essential (primary) hypertension
[2021-10-17] MEDS: XOPENEX 1.25 MG/3 ML NEBULE NEB SCH ×4 (00:10→17:07)
[2021-10-17 06:41] LABS: ALANINE AMINOTRANSFERASE 31 Units/L (12-78); ALKALINE PHOSPHATASE 69 Units/L (46-116); ASPARTATE AMINO TRANSFERASE 35 Units/L (15-37); BLOOD UREA NITROGEN 17 mg/dL (7-18); CARBON DIOXIDE 30.1 mmol/L (21-32); CHLORIDE 106 mmol/L (98-107); COR CA(FOR HYPOALB) 8.8 mg/dL (8.5-10.1); CREATININE 1.09 mg/dL (0.55-1.02); SODIUM 141 mmol/L (136-145); TOTAL PROTEIN 6.1 g/dL (6.4-8.2); eGFR NON BLACK RACES 52 (>60)
[2021-10-17 07:20] LABS: EOSINOPHILS % (AUTO) 1.2 % (0.9-2.9); HEMATOCRIT 26.1 % (36.0-47.0); HEMOGLOBIN 8.8 g/dL (12.0-16.0); LYMPHOCYTES # (AUTO) 0.8 X10^3/uL (1.3-2.9); LYMPHOCYTES % (AUTO) 21.4 % (21.0-51.0); MEAN CORPUSCULAR HEMOGLOBIN 31.9 pg (27.0-34.0); MEAN CORPUSCULAR HGB CONC 33.5 g/dL (33.0-35.0); MEAN CORPUSCULAR VOLUME 95.1 fL (80.0-100.0); MEAN PLATELET VOLUME 8.9 fL (7.4-11.0); MONOCYTES # (AUTO) 0.3 x10^3/uL (0.3-0.8); MONOCYTES % (AUTO) 8.6 % (0.0-13.0); NEUTROPHILS # (AUTO) 2.6 x10^3/uL (2.2-4.8); NEUTROPHILS % (AUTO) 67.8 % (42.0-75.0); RED BLOOD COUNT 2.75 X10^6/uL (3.5-5.4); RED CELL DISTRIBUTION WIDTH 15.5 % (11.6-16.5); WHITE BLOOD COUNT 3.8 X10^3/uL (3.6-10.0)
[2021-10-17] MEDS ORDERED: ZOLOFT ONE (07:45)
--- NOTE | 2021-10-17 08:03 | RAD ---
HISTORYpseudomonas aeruginosa sputum failed 48 hourSTUDYCHEST, 1 [id number]/2022.FINDINGSExamina tion is slightly limited by patient rotation. The trachea is midline. The cardiac silhouette is unremarkable . The lungs are clear without focal infiltrate or effusion. The bony thorax is unremarkable.IMPRESSIONNo significant change from prior examination.Electronically signed by: BOBY MATHEW (Oct 17, 2021 08:01:14)
[2021-10-17] MEDS: PULMICORT NEB TX 0.5 MG NEB SCH ×2 (08:37→19:37)
[2021-10-17] MEDS: HYDROCHLOROTHIAZIDE 12.5 MG CAP PO SCH (08:56)
[2021-10-17] MEDS: NORVASC TAB 5 MG PO SCH (08:56)
[2021-10-17] MEDS: MICRO K EXTEN CAP 10 MEQ PO SCH (08:57)
[2021-10-17] MEDS: TESSALON PERLES PO PRN ×2 (08:57→22:30)
[2021-10-17] MEDS: LOPRESSOR TAB 50 MG PO SCH (08:57)
[2021-10-17] MEDS: ZOLOFT PO SCH (08:57)
[2021-10-17] MEDS: DIOVAN TAB 160 MG PO SCH (08:57)
[2021-10-17] MEDS: ROBITUSSIN CF SYRUP PO SCH ×4 (08:58→20:20)
[2021-10-17] MEDS: TRICOR TAB 160 MG PO SCH (08:58)
[2021-10-17] MEDS: LEVAQUIN TAB 250 MG PO SCH (08:58)
--- NOTE | 2021-10-17 11:00 | PCM.PROG ---
Progress Note Progress Note for Day of Date of Exam: 10/17/21 Subjective Subjective: PT IS A 76 YEAR OLD FEMALE ADMITTED FOR TREATMENT OF BRONCHOPNEUMONIA, COVID-19. SHE INITIALLY TESTED POSITIVE FOR COVID-19 APPROXIMATELY TWO WEEKS AGO AND DID HAVE A RESPIRATORY PANEL THAT CAME BACK POSITIVE FOR PSEUDOMONAS AERUGINOSA. TODAY, SHE IS ALERT AND ORIENTED, SITTING UP IN BED ON MORNING ROUNDS. SHE DOES CONTINUE TO HAVE A PERSISTENT, NON- PRODUCTIVE COUGH BUT HAS IMPROVED FROM YESTERDAY. ON EXAMINATION, HEART IS REGULAR IN RATE AND RHYTHM. BILATERAL LUNGS NOTED WITH RHONCHI THROUGHOUT. ABDOMEN IS ROUND, SOFT, AND NON-TENDER WITH NORMAL BOWEL SOUNDS NOTED IN ALL QUADRANTS. NO UPPER OR LOWER EXTREMITY EDEMA NOTED. LABS/IMAGING: WBC 3.8, HGB 8.8, PLT 162, NA 141, K 4.0, CREATININE 1.09, GLUCOSE 95. A CHEST XRAY WAS OBTAINED THAT REVEALED: NO CHANGES FROM PRIOR, NO ACUTE CARDIOPULMONARY FINDINGS. SHE IS CURRENTLY RECEIVING NORMAL SALINE AT KVO, LEVAQUIN 250MG PO DAILY, XOPENEX NEBS Q6H, PULMICORT NEBS BID, ROBITUSSIN CF 10ML QID, AND THE POTASSIUM AND MAGNESIUM PROTOCOLS. HER HOME MEDICATIONS OF NORVASC, ZYRTEC, TRICOR, NEURONTIN, HCTZ, LOPRESSOR, ZOLOFT, AND DIOVAN WERE RESUMED. OTHERWISE, WE PLAN TO FOLLOW-UP WITH AM LABS AND CONTINUE TO MONITOR. TIME SPENT ON CLIN ICAL ASSESSMENT, REVIWING LABS AND IMAGING, DECISION MAKING, AND DOCUMENTATION GREATER THAN 45 MINUTES. Past Medical Family Social History Past Med/Fam/Surg Hx: No changes since H&P Allergies: Allergies Penicillins Allergy (Verified 05/28/20 12:08) Review of Systems ROS: No change since H&P Vital Signs and I&O's Vital Signs: Temperature 99.3 F Pulse Rate [Apical] 69 Pulse Rate 70 Respiratory Rate 20 Blood Pressure [Left Arm] 147/67 Blood Pressure 188/77 O2 Sat by Pulse Oximetry 97 Intake and Output: Intake & Output 10/14/21 10/15/21 10/16/21 10/17/21 23:59 23:59 23:59 23:59 Intake Total 1260 / 1260 740 / 740 880 / 880 0 / 0 Balance 1260 / 1260 740 / 740 880 / 880 0 / 0 Physical Exam Oriented: Normal Eyes: Normal Ear: Normal Nose: Normal Throat: Normal Respiratory: Generalized, Diminished and Rhonchi Cardiovascular: Normal : Normal Auscultation: Bowel Sounds: Normal Tenderness: Normal Skin: Normal Musculoskeletal: Normal Psychiatric: Normal Mood Description: Calm Affect: Normal Speech Pattern: Clear and Appropriate Laboratory and Diagnostics Result Diagrams: 10/17/21 06:18 10/17/21 06:18 Labs: Laboratory WBC 3.8 X10^3/uL (3.6-10.0) 10/17/21 06:18 RBC 2.75 X10^6/uL (3.5-5.4) L 10/17/21 06:18 Hgb 8.8 g/dL (12.0-16.0) L 10/17/21 06:18 Hct 26.1 % (36.0-47.0) L 10/17/21 06:18 MCV 95.1 fL (80.0-100.0) 10/17/21 06:18 MCH 31.9 pg (27.0-34.0) 10/17/21 06:18 MCHC 33.5 g/dL (33.0-35.0) 10/17/21 06:18 RDW 15.5 % (11.6-16.5) 10/17/21 06:18 Plt Count 162 X10^3/uL (150.0-450.0) 10/17/21 06:18 MPV 8.9 fL (7.4-11.0) 10/17/21 06:18 Neut % (Auto) 67.8 % (42.0-75.0) 10/17/21 06:18 Lymph % (Auto) 21.4 % (21.0-51.0) 10/17/21 06:18 [place] % (Auto) 8.6 % (0.0-13.0) 10/17/21 06:18 Eos % (Auto) 1.2 % (0.9-2.9) 10/17/21 06:18 Baso % (Auto) 1.0 % (0.2-1.0) 10/17/21 06:18 Neut # (Auto) 2.6 x10^3/uL (2.2-4.8) 10/17/21 06:18 Lymph # (Auto) 0.8 X10^3/uL (1.3-2.9) L 10/17/21 06:18 [place] # (Auto) 0.3 x10^3/uL (0.3-0.8) 10/17/21 06:18 Eos # (Auto) 0.0 x10^3/uL (0.0-0.2) 10/17/21 06:18 Baso # (Auto) 0.0 X10^3/uL (0.0-0.1) 10/17/21 06:18 Absolute Nucleated RBC 0.0 /100WBC 10/17/21 06:18 D-Dimer 0.64 ug/ml (0.0-0.57) H 10/14/21 05:34 Sodium 141 mmol/L (136-145) 10/17/21 06:18 Corrected Sodium TNP 10/17/21 06:18 Potassium 4.0 mmol/L (3.5-5.1) 10/17/21 06:18 Chloride 106 mmol/L (98-107) 10/17/21 06:18 Carbon Dioxide 30.1 mmol/L (21-32) 10/17/21 06:18 BUN 17 mg/dL (7-18) 10/17/21 06:18 Creatinine 1.09 mg/dL (0.55-1.02) H 10/17/21 06:18 Est GFR (MDRD) Af Amer > 60 (>60) 10/17/21 06:18 Est GFR (MDRD) Non-Af 52 (>60) L 10/17/21 06:18 Glucose 95 mg/dL (65-99) 10/17/21 06:18 Calcium 8.0 mg/dL (8.5-10.1) L 10/17/21 06:18 Corrected Calcium 8.8 mg/dL (8.5-10.1) 10/17/21 06:18 Magnesium 2.4 mg/dL (1.7-2.9) 10/14/21 05:34 Total Bilirubin 0.80 mg/dL (0.2-1.0) 10/17/21 06:18 AST 35 Units/L (15-37) 10/17/21 06:18 ALT 31 Units/L (12-78) 10/17/21 06:18 Alkaline Phosphatase 69 Units/L (46-116) 10/17/21 06:18 C-Reactive Protein 2.40 mg/L (0-3.0) 10/17/21 06:18 B-Natriuretic Peptide 186 pg/mL (0-79) H 10/13/21 05:18 Total Protein 6.1 g/dL (6.4-8.2) L 10/17/21 06:18 Albumin 3.0 g/dL (3.4-5.0) L 10/17/21 06:18 Globulin 3.1 g/dL (2.5-4.5) 10/17/21 06:18 Albumin/Globulin Ratio 1.0 Ratio (1.1-2.1) L 10/17/21 06:18 SARS-CoV-2 (PCR) Positive (NEGATIVE) A 10/12/21 18:15 Resp Viral Panel (PCR) See scanned report 10/12/21 18:38 Plan (1) Bronchopneumonia: Status: Acute Plan: NORMAL SALINE AT KVO, LEVAQUIN 250MG IV DAILY, XOPENEX NEBS Q6H, PULMICORT NEBS BID, ROBITUSSIN CF 10ML QID, AND THE POTASSIUM AND MAGNESIUM PROTOCOLS. RESUME HOME MEDS (2) COVID-19: Status: Acute (3) HTN (hypertension): Status: Chronic Qualifiers: Hypertension type: primary hypertension Qualified Code(s): I10 - Essential (primary) hypertension
[2021-10-17] MEDS ORDERED: CATAPRES TAB 0.1 MG PO ONE (12:32)
[2021-10-17] MEDS ORDERED: DUONEB 0.5 MG/3 MG (3 mL) NEB ONE (19:19)
[2021-10-17] MEDS: ZyrTEC TAB 10 MG PO SCH (20:20)
[2021-10-17] MEDS: NEURONTIN CAP 100 MG PO SCH (20:20)
[2021-10-17] MEDS ORDERED: DUONEB 0.5 MG/3 MG (3 mL) NEB SCH (21:00)
[2021-10-18 05:15] LABS: BASOPHILS % (AUTO) 1.2 % (0.2-1.0); EOSINOPHILS % (AUTO) 1.2 % (0.9-2.9); HEMATOCRIT 23.6 % (36.0-47.0); HEMOGLOBIN 8.1 g/dL (12.0-16.0); LYMPHOCYTES # (AUTO) 0.8 X10^3/uL (1.3-2.9); LYMPHOCYTES % (AUTO) 24.2 % (21.0-51.0); MEAN CORPUSCULAR HEMOGLOBIN 32.3 pg (27.0-34.0); MEAN CORPUSCULAR HGB CONC 34.2 g/dL (33.0-35.0); MEAN CORPUSCULAR VOLUME 94.6 fL (80.0-100.0); MEAN PLATELET VOLUME 8.7 fL (7.4-11.0); MONOCYTES # (AUTO) 0.3 x10^3/uL (0.3-0.8); MONOCYTES % (AUTO) 8.4 % (0.0-13.0); NEUTROPHILS # (AUTO) 2.3 x10^3/uL (2.2-4.8); RED CELL DISTRIBUTION WIDTH 15.8 % (11.6-16.5); WHITE BLOOD COUNT 3.5 X10^3/uL (3.6-10.0)
[2021-10-18 05:23] LABS: ALANINE AMINOTRANSFERASE 27 Units/L (12-78); ALBUMIN 2.7 g/dL (3.4-5.0); ALKALINE PHOSPHATASE 59 Units/L (46-116); ASPARTATE AMINO TRANSFERASE 29 Units/L (15-37); BLOOD UREA NITROGEN 20 mg/dL (7-18); CALCIUM 7.7 mg/dL (8.5-10.1); CARBON DIOXIDE 27.8 mmol/L (21-32); CHLORIDE 108 mmol/L (98-107); COR CA(FOR HYPOALB) 8.7 mg/dL (8.5-10.1); CREATININE 1.03 mg/dL (0.55-1.02); SODIUM 141 mmol/L (136-145); TOTAL PROTEIN 5.5 g/dL (6.4-8.2); eGFR NON BLACK RACES 55 (>60)
--- NOTE | 2021-10-18 06:25 | RAD ---
HISTORYpseudomonas aeruginosa sputum failed 48 hours. sobSTUDYCHEST, 1 [id number] trachea is midline. The cardiac silhouette is unremarkable . The lungs are clear without focal infiltrate or effusion. The bony thorax is unremarkable.IMPRESSIONNo significant change from prior examination.Electronically signed by: BOBY MATHEW (Oct 18, 2021 06:23:17)
[2021-10-18] MEDS: PULMICORT NEB TX 0.5 MG NEB SCH (08:28)
[2021-10-18] MEDS: DUONEB 0.5 MG/3 MG (3 mL) NEB SCH ×2 (08:28→13:15)
[2021-10-18] MEDS ORDERED: ZOLOFT ONE (09:01)
[2021-10-18] MEDS: ROBITUSSIN CF SYRUP PO SCH (09:11)
[2021-10-18] MEDS: TRICOR TAB 160 MG PO SCH (09:11)
[2021-10-18] MEDS: NORVASC TAB 5 MG PO SCH (09:11)
[2021-10-18] MEDS: MICRO K EXTEN CAP 10 MEQ PO SCH (09:12)
[2021-10-18] MEDS: LEVAQUIN TAB 250 MG PO SCH (09:12)
[2021-10-18] MEDS: LOPRESSOR TAB 50 MG PO SCH (09:13)
[2021-10-18] MEDS: DIOVAN TAB 160 MG PO SCH (09:13)
[2021-10-18] MEDS: HYDROCHLOROTHIAZIDE 12.5 MG CAP PO SCH (09:13)
[2021-10-18] MEDS: ZOLOFT PO SCH (09:14)
--- NOTE | 2021-10-18 10:16 | W.DIS.FURT ---
Summary of Discharge Discharge Summary of Date Date of Exam: 10/18/21 Admission Date Date of Admission: 10/13/21 Admission Diagnosis Patient Problems (Updated 10/14/21 @ 11:49 by Malik Robert) Bronchopneumonia (Acute) J18.0 COVID-19 (Acute) U07.1 HTN (hypertension) (Chronic) I10 Hospital Course: PT IS A 76 YEAR OLD FEMALE ADMITTED FOR TREATMENT OF BRONCHOPNEUMONIA, COVID-19. SHE INITIALLY TESTED POSITIVE FOR COVID-19 APPROXIMATELY TWO WEEKS AGO AND DID HAVE A RESPIRATORY PANEL THAT CAME BACK POSITIVE FOR PSEUDOMONAS AERUGINOSA. HER HOSPITAL/TREATMENT COURSE INCLUDED: NORMAL SALINE AT KVO, LEVAQUIN 250MG PO DAILY, XOPENEX NEBS Q6H, PULMICORT NEBS BID, ROBITUSSIN CF 10ML QID, AND THE POTASSIUM AND MAGNESIUM PROTOCOLS. HER HOME MEDICATIONS OF NORVASC, ZYRTEC, TRICOR, NEURONTIN, HCTZ, LOPRESSOR, ZOLOFT, AND DIOVAN WERE RESUMED. LABS/IMAGING: WBC 3.5, HGB 8.1, PLT 138, NA 141, K 3.9, CREATININE 1.03, GLUCOSE 95. A CHEST XRAY WAS OBTAINED THAT REVEALED: NO CHANGES FROM PRIOR, NO ACUTE CARDIOPULMONARY FINDINGS. PT RESPONDED WELL TO TREATMENTS. SHE DID NOT REQUIRE ANY SUPPLEMENTAL OXYGEN ON DISCHARGE. RX LEVAQUIN TO COMPLETE ANTIBIOTIC COURSE. PT DISCHARGED IN STABLE CONDITION, INSTRUCTED TO FOLLOW UP WITH PCP IN 3-5 DAYS. Vital Signs: Vital Signs (72 hours) 10/15/21 12:00 10/15/21 16:00 10/15/21 19:00 Temperature 97.8 F 98.2 F Pulse Rate Pulse Rate [Apical] 84 72 Pulse Rate [Left Brachial] Respiratory Rate 20 20 Blood Pressure [Left Arm] 176/70 125/60 O2 Sat by Pulse Oximetry 95 95 Oxygen Delivery Method Nasal Cannula Nasal Cannula Nasal Cannula Oxygen Flow Rate 2 2 2 FIO2% 10/15/21 20:10 10/15/21 20:10 10/15/21 20:00 Temperature 99.1 F Pulse Rate 74 Pulse Rate [Apical] 76 Pulse Rate [Left Brachial] Respiratory Rate 20 Blood Pressure [Left Arm] 160/71 O2 Sat by Pulse Oximetry 94 L 93 L Oxygen Delivery Method Nasal Cannula Nasal Cannula Oxygen Flow Rate 2 2 FIO2% 28 10/16/21 00:00 10/16/21 04:00 10/16/21 08:25 Temperature 99.2 F 97.4 F L Pulse Rate Pulse Rate [Apical] 79 77 Pulse Rate [Left Brachial] Respiratory Rate 18 18 Blood Pressure [Left Arm] 145/65 144/65 O2 Sat by Pulse Oximetry 98 97 Oxygen Delivery Method Nasal Cannula Nasal Cannula Room Air Oxygen Flow Rate 2 2 FIO2% 10/16/21 08:25 10/16/21 08:00 10/16/21 08:28 Temperature 98.3 F Pulse Rate Pulse Rate [Apical] 80 Pulse Rate [Left Brachial] Respiratory Rate 20 Blood Pressure [Left Arm] 123/75 O2 Sat by Pulse Oximetry 97 98 Oxygen Delivery Method Nasal Cannula Nasal Cannula Oxygen Flow Rate 2 2 FIO2% 10/16/21 12:00 10/16/21 16:00 10/16/21 20:50 Temperature 97.8 F 97.9 F Pulse Rate 82 Pulse Rate [Apical] 68 75 Pulse Rate [Left Brachial] Respiratory Rate 20 20 Blood Pressure [Left Arm] 136/55 142/63 O2 Sat by Pulse Oximetry 98 97 97 Oxygen Delivery Method Nasal Cannula Nasal Cannula Oxygen Flow Rate 2 2 FIO2% 10/16/21 20:51 10/16/21 20:00 10/16/21 19:00 Temperature 99.1 F Pulse Rate Pulse Rate [Apical] 73 Pulse Rate [Left Brachial] Respiratory Rate 20 Blood Pressure [Left Arm] 147/68 O2 Sat by Pulse Oximetry 97 Oxygen Delivery Method Room Air Nasal Cannula Nasal Cannula Oxygen Flow Rate 2 2 FIO2% 10/16/21 23:58 10/17/21 03:58 10/17/21 08:00 Temperature 98.9 F 98.6 F 99.3 F Pulse Rate Pulse Rate [Apical] 78 76 69 Pulse Rate [Left Brachial] Respiratory Rate 18 18 20 Blood Pressure [Left Arm] 150/65 162/69 147/67 O2 Sat by Pulse Oximetry 96 97 96 Oxygen Delivery Method Nasal Cannula Nasal Cannula Nasal Cannula Oxygen Flow Rate 2 2 2 FIO2% 10/17/21 08:37 10/17/21 08:37 10/17/21 09:04 Temperature Pulse Rate 70 Pulse Rate [Apical] Pulse Rate [Left Brachial] Respiratory Rate Blood Pressure [Left Arm] O2 Sat by Pulse Oximetry 97 Oxygen Delivery Method Room Air Nasal Cannula Oxygen Flow Rate 2 FIO2% 10/17/21 12:00 10/17/21 14:30 10/17/21 16:23 Temperature 98.9 F 99.1 F Pulse Rate Pulse Rate [Apical] 76 67 Pulse Rate [Left Brachial] Respiratory Rate 18 20 Blood Pressure [Left Arm] 172/73 135/61 137/65 O2 Sat by Pulse Oximetry 94 L 98 Oxygen Delivery Method Nasal Cannula Nasal Cannula Oxygen Flow Rate 2 2 FIO2% 10/17/21 19:00 10/17/21 19:36 10/17/21 19:37 Temperature Pulse Rate 72 Pulse Rate [Apical] Pulse Rate [Left Brachial] Respiratory Rate Blood Pressure [Left Arm] O2 Sat by Pulse Oximetry 97 Oxygen Delivery Method Nasal Cannula Room Air Oxygen Flow Rate 2 FIO2% 10/17/21 20:00 10/18/21 00:00 10/18/21 03:58 Temperature 98.2 F 98.3 F 97.4 F L Pulse Rate Pulse Rate [Apical] 69 71 68 Pulse Rate [Left Brachial] Respiratory Rate 20 20 20 Blood Pressure [Left Arm] 141/64 141/64 157/69 O2 Sat by Pulse Oximetry 97 98 97 Oxygen Delivery Method Nasal Cannula Nasal Cannula Nasal Cannula Oxygen Flow Rate 2 2 2 FIO2% 10/18/21 08:00 10/18/21 08:28 10/18/21 08:28 Temperature 97.8 F Pulse Rate 77 Pulse Rate [Apical] Pulse Rate [Left Brachial] 77 Respiratory Rate 18 Blood Pressure [Left Arm] 142/63 O2 Sat by Pulse Oximetry 98 98 Oxygen Delivery Method Room Air Room Air Oxygen Flow Rate FIO2% 10/18/21 07:00 Temperature Pulse Rate Pulse Rate [Apical] Pulse Rate [Left Brachial] Respiratory Rate Blood Pressure [Left Arm] O2 Sat by Pulse Oximetry Oxygen Delivery Method Room Air Oxygen Flow Rate FIO2% Labs: Laboratory Last Values WBC 3.5 X10^3/uL (3.6-10.0) L 10/18/21 05:00 RBC 2.50 X10^6/uL (3.5-5.4) L 10/18/21 05:00 Hgb 8.1 g/dL (12.0-16.0) L 10/18/21 05:00 Hct 23.6 % (36.0-47.0) L 10/18/21 05:00 MCV 94.6 fL (80.0-100.0) 10/18/21 05:00 MCH 32.3 pg (27.0-34.0) 10/18/21 05:00 MCHC 34.2 g/dL (33.0-35.0) 10/18/21 05:00 RDW 15.8 % (11.6-16.5) 10/18/21 05:00 Plt Count 138 X10^3/uL (150.0-450.0) L 10/18/21 05:00 MPV 8.7 fL (7.4-11.0) 10/18/21 05:00 Neut % (Auto) 65.0 % (42.0-75.0) 10/18/21 05:00 Lymph % (Auto) 24.2 % (21.0-51.0) 10/18/21 05:00 [place] % (Auto) 8.4 % (0.0-13.0) 10/18/21 05:00 Eos % (Auto) 1.2 % (0.9-2.9) 10/18/21 05:00 Baso % (Auto) 1.2 % (0.2-1.0) H 10/18/21 05:00 Neut # (Auto) 2.3 x10^3/uL (2.2-4.8) 10/18/21 05:00 Lymph # (Auto) 0.8 X10^3/uL (1.3-2.9) L 10/18/21 05:00 [place] # (Auto) 0.3 x10^3/uL (0.3-0.8) 10/18/21 05:00 Eos # (Auto) 0.0 x10^3/uL (0.0-0.2) 10/18/21 05:00 Baso # (Auto) 0.0 X10^3/uL (0.0-0.1) 10/18/21 05:00 Absolute Nucleated RBC 0.1 /100WBC 10/18/21 05:00 D-Dimer 0.64 ug/ml (0.0-0.57) H 10/14/21 05:34 Sodium 141 mmol/L (136-145) 10/18/21 05:00 Corrected Sodium TNP 10/18/21 05:00 Potassium 3.9 mmol/L (3.5-5.1) 10/18/21 05:00 Chloride 108 mmol/L (98-107) H 10/18/21 05:00 Carbon Dioxide 27.8 mmol/L (21-32) 10/18/21 05:00 BUN 20 mg/dL (7-18) H 10/18/21 05:00 Creatinine 1.03 mg/dL (0.55-1.02) H 10/18/21 05:00 Est GFR (MDRD) Af Amer > 60 (>60) 10/18/21 05:00 Est GFR (MDRD) Non-Af 55 (>60) L 10/18/21 05:00 Glucose 95 mg/dL (65-99) 10/18/21 05:00 Calcium 7.7 mg/dL (8.5-10.1) L 10/18/21 05:00 Corrected Calcium 8.7 mg/dL (8.5-10.1) 10/18/21 05:00 Magnesium 2.4 mg/dL (1.7-2.9) 10/14/21 05:34 Total Bilirubin 0.70 mg/dL (0.2-1.0) 10/18/21 05:00 AST 29 Units/L (15-37) 10/18/21 05:00 ALT 27 Units/L (12-78) 10/18/21 05:00 Alkaline Phosphatase 59 Units/L (46-116) 10/18/21 05:00 C-Reactive Protein 2.40 mg/L (0-3.0) 10/18/21 05:00 B-Natriuretic Peptide 186 pg/mL (0-79) H 10/13/21 05:18 Total Protein 5.5 g/dL (6.4-8.2) L 10/18/21 05:00 Albumin 2.7 g/dL (3.4-5.0) L 10/18/21 05:00 Globulin 2.8 g/dL (2.5-4.5) 10/18/21 05:00 Albumin/Globulin Ratio 1.0 Ratio (1.1-2.1) L 10/18/21 05:00 SARS-CoV-2 (PCR) Positive (NEGATIVE) A 10/12/21 18:15 Resp Viral Panel (PCR) See scanned report 10/12/21 18:38 Reason For Visit: PSEUDOMONAS AERUGINOSA SPUTUM, FAILED 48 HOUR Discharge Date Discharge Date: 10/18/21 Discharge Diagnosis All Active Problems (Updated 10/14/21 @ 11:49 by Malik Robert) Bronchopneumonia (Acute) COVID-19 (Acute) HTN (hypertension) (Chronic) Plan of Treatment: Continue with present treatment and follow up plan. Pt is to keep follow up appointment as instructed and take medications as ordered. Discharge Medications Discharge Medications: Penicillins Allergy (Verified 05/28/20 12:08) CONTINUE taking the following medications amlodipine 5 mg tablet 1 tab PO QDAY 10/13/21 [History] cetirizine 10 mg tablet 1 tab PO QPM 10/13/21 [History] fenofibrate 160 mg tablet 1 tab PO QDAY 10/13/21 [History] gabapentin 100 mg capsule 1 cap PO QPM 10/13/21 [History] metoprolol tartrate 100 mg tablet 0.5 tab PO QDAY 10/13/21 [History] potassium chloride 10 mEq tablet,extended release 1 tab PO QDAY 10/13/21 [History] sertraline 100 mg tablet 1 tab PO QDAY 10/13/21 [History] valsartan 320 mg-hydrochlorothiazide 25 mg tablet 0.5 tab PO QDAY 10/13/21 [History] New Prescriptions budesonide 0.5 mg/2 mL suspension for nebulization 1 ea NEB BIDRESP #50 mL 10/14/21 [Rx] ipratropium 0.5 mg-albuterol 3 mg (2.5 mg base)/3 mL nebulization soln 1 neb NEB TID #50 EACH 10/14/21 [Rx] levofloxacin 500 mg tablet 500 mg PO DAILY #10 tabs 10/14/21 [Rx] Discharge Disposition Discharge Disposition: HOME Discharge Condition: STABLE Discharge Plan Discharge Plan Hospital Course: PT IS A 76 YEAR OLD FEMALE ADMITTED FOR TREATMENT OF BRONCHOPNEUMONIA, COVID-19. SHE INITIALLY TESTED POSITIVE FOR COVID-19 APPROXIMATELY TWO WEEKS AGO AND DID HAVE A RESPIRATORY PANEL THAT CAME BACK POSITIVE FOR PSEUDOMONAS AERUGINOSA. HER HOSPITAL/TREATMENT COURSE INCLUDED: NORMAL SALINE AT KVO, LEVAQUIN 250MG PO DAILY, XOPENEX NEBS Q6H, PULMICORT NEBS BID, ROBITUSSIN CF 10ML QID, AND THE POTASSIUM AND MAGNESIUM PROTOCOLS. HER HOME MEDICATIONS OF NORVASC, ZYRTEC, TRICOR, NEURONTIN, HCTZ, LOPRESSOR, ZOLOFT, AND DIOVAN WERE RESUMED. LABS/IMAGING: WBC 3.5, HGB 8.1, PLT 138, NA 141, K 3.9, CREATININE 1.03, GLUCOSE 95. A CHEST XRAY WAS OBTAINED THAT REVEALED: NO CHANGES FROM PRIOR, NO ACUTE CARDIOPULMONARY FINDINGS. PT RESPONDED WELL TO TREATMENTS. SHE DID NOT REQUIRE ANY SUPPLEMENTAL OXYGEN ON DISCHARGE. RX LEVAQUIN TO COMPLETE ANTIBIOTIC COURSE. PT DISCHARGED IN STABLE CONDITION, INSTRUCTED TO FOLLOW UP WITH PCP IN 3-5 DAYS. Patient Disposition: 01 HOME, SELF-CARE Condition: Stable Health Concerns: Post Hospitalization: new medications and changes needed to prevent readmission or further decline. Pt educated and given instructions on all concerns. Plan of Treatment: Continue with present treatment and follow up plan. Pt is to keep follow up appointment as instructed and take medications as ordered. Prescriptions: New ipratropium-albuterol [ipratropium-albuterol] 0.5 mg-3 mg(2.5 mg base)/3 mL solution for nebulization 1 neb NEB TID Qty: 50 1RF budesonide 0.5 mg/2 mL suspension for nebulization 1 ea NEB BIDRESP Qty: 50 1RF levofloxacin 500 mg tablet 500 mg PO DAILY Qty: 10 0RF Rx Instructions: TAKE ONE TABLET DAILY FOR 10 DAYS Continued cetirizine 10 mg tablet 1 tab PO QPM metoprolol tartrate 100 mg tablet 0.5 tab PO QDAY sertraline 100 mg tablet 1 tab PO QDAY potassium chloride 10 mEq tablet extended release 1 tab PO QDAY amlodipine 5 mg tablet 1 tab PO QDAY gabapentin 100 mg capsule 1 cap PO QPM fenofibrate 160 mg tablet 1 tab PO QDAY valsartan-hydrochlorothiazide 320-25 mg tablet 0.5 tab PO QDAY Follow ups/Referrals Follow ups/Referrals: ROXANNE VALENCIA [Primary Care Provider] - 10/26/21 1:20 pm Instructions Instructions: Understanding Your Risk for Falls, 10 Things You Can Do to Manage Your COVID-19 Symptoms at Home - [facility] [place] (08/15/2019), Cough, Adult, Managing Your Hypertension, Rehydration, Elderly Activity Restrictions/Additional Instructions: DIET TOLERATED. ACTIVITY TOLERATED. Stand Alone Forms: Excuse From Work or School, Precautions for COVID19, [facility], Patient Portal, Social Distancing Patient Education Addl Reference Links: COVID-19 [email or web address]=Female&age.[email or web address]. v=[email or web address]&age.[email or web address].u=a&[email or web address]&informationRecipient=[email or web address]&performer.languageCode.c= en&mainSearchCriteria.v.u=[id number]&main SearchCriteria.v.cs=[id number]&mainSearchCriteria.v.dn=COVID-19&main SearchCriteria.v.m4=466.89&mainSearchCriteria.v.cs1=[id number]&main SearchCriteria.v.dn1=COVID-19&mainSearch Criteria.v.c2=U07.1&mainSearchCriteria.v.cs2=[id number]&mainSearchCr iteria.v.dn2=COVID-19
[2021-10-18 12:48] VITALS: BP 137/62
== END 2021-10-18 15:02 | disposition home or self-care (01) | DRG 179 ==
LOC: MED/SURG
PROVIDERS: ADMIT Internal Medicine; ATTEND Internal Medicine
DX: R26.89 Other abnormalities of gait and mobility; I10 Essential (primary) hypertension; Z86.19 Personal history of other infectious and parasitic diseases; R06.02 Shortness of breath; R79.1 Abnormal coagulation profile; J15.1 Pneumonia due to Pseudomonas